=== PATIENT | male | born 1960 | race Caucasian/White ===

== ENCOUNTER 2016-10-25 11:18 | Observation (INO) ==
[2016-10-25] MEDS ORDERED: 0.9 % Sodium Chloride 500 ML IVC ONE (11:49)
--- NOTE | 2016-10-25 11:53 | Emergency Department Note ---
Disposition Clinical Impression: Hospital-acquired pneumonia Chest pain Qualifiers: Chest pain type: unspecified Qualified Code(s): R07.9 - Chest pain, unspecified Disposition: Admitted As Inpatient Condition: Fair Referrals: Bebeto Cutler MD [Primary Care Provider] - Forms: ED Satisfaction Letter Time of Disposition: 14:32 Chest Pain HPI - General Chief Complaint: ED Chest Pain Stated Complaint: Chest pain, KAREN Time Seen by Provider: 10/25/16 11:25 Source: patient, family Mode of arrival: private vehicle Limitations: no limitations Vital Signs Reviewed: Yes Nursing Notes Reviewed: Yes - History of Present Illness Pt complaint: chest pain Onset (ago): day(s) (3 days, started Tuesday) Duration: intermittent Onset: during rest Pain Location: left chest (Just to the left of the sternum. Patient defines a small localized area at about the level of the nipple) Severity: moderate (At its worst) Severity scale (1-10): 0 (Currently) Quality: sharp Pain Radiation: none Improves with: nothing Worsens with: nothing Context: recent surgery (Patient had surgery to release tightened tendons in his right hand on , the day before the onset of his symptoms.) Associated symptoms: Reports: nausea, diaphoresis, dyspnea (Patient states he is short of breath just sitting there) Treatments prior to arrival chest pain: none - Related Data Home Medications Medication Instructions Recorded Confirmed Aspirin 81 mg PO DAILY 03/31/15 10/25/16 Atorvastatin [Lipitor] 40 mg PO HS 03/31/15 10/25/16 Carvedilol [Coreg] 12.5 tab PO BID 03/31/15 10/25/16 Clopidogrel [Plavix] 75 mg PO DAILY 03/31/15 10/25/16 DiphenhydraMINE [Benadryl] 25 mg PO HS PRN 03/31/15 10/25/16 FLUoxetine HCl [PROzac] 20 mg PO DAILY #0 03/31/15 10/25/16 Fluticasone Propionate Nasal 2 spray NS DAILY 03/31/15 10/25/16 [Flonase] Gabapentin [Neurontin] 800 mg PO HS 03/31/15 10/25/16 GlipiZIDE XL (24 HR) [Glucotrol XL] 10 mg PO BID 03/31/15 10/25/16 Insulin Glargine,Hum.rec.anlog 30 units SQ HS 03/31/15 10/25/16 [Lantus Solostar] LORazepam [Ativan] 2 mg PO BID PRN 03/31/15 10/25/16 Losartan [Cozaar] 50 mg PO DAILY 03/31/15 10/25/16 Omeprazole [PriLOSEC] 20 mg PO DAILY 03/31/15 10/25/16 OxyCODONE/APAP 7.5/325 [Percocet 1 tab PO TID PRN 03/31/15 10/25/16 7.5/325] Metformin [Glucophage] 1,000 mg PO BIDWM 10/01/15 10/25/16 Nitroglycerin [Nitrostat] 0.4 mg SL AD PRN 10/01/15 10/25/16 Allergies Allergy/AdvReac Type Severity Reaction Status Date / Time No Known Allergies Allergy Verified 10/21/16 08:31 All systems ED: reviewed and negative except as stated. Constitutional: Denies: fever (Took his temperature was 99 8) ENT ED: Denies: ear pain, throat pain, congestion Cardiovascular: Reports: chest pain. Denies: palpitations Respiratory: Reports: cough (Cough did bring up some brown sputum earlier today) , dyspnea Gastrointestinal: Reports: nausea, vomiting. Denies: abdominal pain Musculoskeletal: Denies: back pain Integumentary: Denies: rash Neurological: Denies: headache Chest Pain PMH - Past Medical History Medical history: Reports: cardiomyopathy, diabetes, GERD, hyperlipidemia, hypertension, myocardial infarction Surgical history: Reports: angioplasty/stent, cholecystectomy, sinus surgery, other Psychiatric history: Reports: anxiety, depression, panic disorder - Social History Smoking Status: Current every day smoker Alcohol use: Reports: occasionally Drug use: Reports: none Physical Exam - General Limitations: no limitations General appearance: alert, in no apparent distress - Head Head exam: atraumatic, normocephalic - Eye Eye exam: Present: normal appearance, PERRL, EOMI - ENT ENT exam: normal exam, normal oropharynx, mucous membranes moist, normal external ear exam - Neck Neck exam: Present: normal inspection, full ROM, trachea midline - Chest Chest inspection: Present: normal inspection, symmetric chest wall rise. Absent : tenderness - Respiratory Respiratory exam: Present: normal lung sounds bilaterally. Absent: respiratory distress, wheezes - Cardiovascular Cardiovascular exam: Present: regular rate, normal rhythm, normal heart sounds - Abdominal Exam Abdominal exam: Present: soft, Non-Tender - Extremities Exam Extremities exam: Present: normal inspection (Except for the presence of a splint on the right hand due to his recent surgery.), full ROM. Absent: pedal edema - Neurological Exam Neurological exam: Present: alert, oriented X3 - Psychiatric Psychiatric exam: Present: normal affect, normal mood - Skin Skin exam: Present: warm, dry. Absent: rash Course Course Narrative: Patient presents with chest pain that by his description sounds like it could be muscular skeletal within intermittent sharp stabbing pain in a very small area of distribution. However it does not get worse with breathing or movement or palpation. He gets the discomfort whether he is at rest or active, and does not note that physical activity actually exacerbates the issue. The kind of surgery he had does not seem like it would be a significant risk factor for PE. However that has to be high on her differential given the description and symptoms. We will get a chest pain workup and will add the CTA of the chest to go straight for the PE issue. At this time the patient looks comfortable and his vital signs are fine. He seems to be most concerned at this moment with getting that splint taken off because he was supposed to go to the doctor's office to get the splint taken off today. - Reevaluation(s) Reevaluation #1: CT scan of the chest came back negative for pulmonary embolism. There is ground glass appearing material in the upper lobes bilaterally. This could indicate pneumonia. Patient is reportedly had some coughing. He is reported to us started bringing up brown sputum this morning. He is going cannot sweat and he does complain of shortness of breath. If this is truly pneumonia, we have to consider a hospital-acquired pneumonia because he was put to sleep for his hand surgery on . I ordered blood cultures and ordered some antibiotics. Time: 14:15 - Consultations Consultation #1: Roxy Torres CNP, hospitalist - I discussed the case with the hospitalist admit her. We talked about the need for antibiotics while admitting the patient for chest pain rule out. Patient is accepted for admission. Time: 14:30 Vital Signs Temperature 98.1 F 10/25/16 11:24 Pulse Rate 82 10/25/16 11:24 Respiratory Rate 18 10/25/16 11:24 Blood Pressure 148/72 10/25/16 11:24 O2 Sat by Pulse Oximetry 97 10/25/16 11:24 Temperature 98.6 F 10/25/16 11:44 Pulse Rate 73 10/25/16 12:44 Respiratory Rate 18 10/25/16 12:44 Blood Pressure 117/72 10/25/16 12:44 O2 Sat by Pulse Oximetry 95 10/25/16 12:44 Oxygen Delivery Oxygen Delivery Room Air Chest Pain - Medical Records Medical records reviewed: Yes I reviewed the patient's medical records. - Lab Data Lab results reviewed: Yes I reviewed the patient's lab results. Result diagrams: 10/25/16 12:15 10/25/16 12:15 Lab Results 10/25/16 10/25/16 10/25/16 Range/Units 12:15 12:15 12:15 WBC 11.7 H (4.3-11.1) K/mcL RBC 4.71 (4.19-5.50) M/mcL Hgb 14.6 (12.9-16.9) g/dL Hct 43.0 (37.5-50.1) % MCV 91.3 (83.0-100.0) fL MCH 31.0 (28.0-33.3) pg MCHC 34.0 (31.6-35.5) g/dL RDW 12.9 (11.5-14.5) % Plt Count 204 (140-400) K/mcL MPV 9.4 (9.4-12.4) fL Immature Gran % 0.4 (0-4) % Seg Neutrophils % 66.1 % Lymphocytes % 20.0 % Monocytes % 10.2 % Eosinophils % 2.6 % Basophils % 0.7 % Neutrophils # 7.8 (1.6-8.9) K/mcL Lymphocytes # 2.3 (0.6-4.6) K/mcL Monocytes # 1.2 (0.0-1.3) K/mcL Eosinophils # 0.3 (0.0-0.6) K/mcL Basophils # 0.1 (0.0-0.2) K/mcL PT 11.2 (9.4-12.1) Seconds INR 1.0 APTT 33.1 (26.0-36.0) Seconds Sodium 135 L (136-145) mEq/L Potassium 4.2 (3.5-4.5) mEq/L Chloride 103 (98-109) mEq/L Carbon Dioxide 22 (19-29) mEq/L BUN 17 (8-26) mg/dL Creatinine 0.84 (0.72-1.25) mg/dL Est GFR ( Amer) > 60 (> 60) Est GFR (Non-Af Amer) > 60 (> 60) BUN/Creatinine Ratio 20 (6-26) Glucose 184 H (70-99) mg/dL Calculated Osmolality 286 (280-300) Calcium 9.4 (8.6-10.8) mg/dL Troponin I (0-0.03) ng/mL 10/25/16 Range/Units 12:15 WBC (4.3-11.1) K/mcL RBC (4.19-5.50) M/mcL Hgb (12.9-16.9) g/dL Hct (37.5-50.1) % MCV (83.0-100.0) fL MCH (28.0-33.3) pg MCHC (31.6-35.5) g/dL RDW (11.5-14.5) % Plt Count (140-400) K/mcL MPV (9.4-12.4) fL Immature Gran % (0-4) % Seg Neutrophils % % Lymphocytes % % Monocytes % % Eosinophils % % Basophils % % Neutrophils # (1.6-8.9) K/mcL Lymphocytes # (0.6-4.6) K/mcL Monocytes # (0.0-1.3) K/mcL Eosinophils # (0.0-0.6) K/mcL Basophils # (0.0-0.2) K/mcL PT (9.4-12.1) Seconds INR APTT (26.0-36.0) Seconds Sodium (136-145) mEq/L Potassium (3.5-4.5) mEq/L Chloride (98-109) mEq/L Carbon Dioxide (19-29) mEq/L BUN (8-26) mg/dL Creatinine (0.72-1.25) mg/dL Est GFR ( Amer) (> 60) Est GFR (Non-Af Amer) (> 60) BUN/Creatinine Ratio (6-26) Glucose (70-99) mg/dL Calculated Osmolality (280-300) Calcium (8.6-10.8) mg/dL Troponin I 0.00 (0-0.03) ng/mL - Radiology Data Radiology results reviewed: Yes I reviewed the patient's radiology results. - EKG Data EKG attestation: Yes I reviewed and interpreted this EKG. EKG shows normal: sinus rhythm, axis, intervals, QRS complexes, ST-T waves Rate: normal Q waves: III Interpretation: no acute changes (Sinus rhythm with evidence of probable old inferior infarct consistent with patient's history.), unchanged when compared to prior tracing (date) (September 2015)
[2016-10-25 12:33] LABS: Basophils # 0.1 K/mcL (0.0-0.2); Basophils % 0.7 %; Eosinophils # 0.3 K/mcL (0.0-0.6); Eosinophils % 2.6 %; Hemoglobin 14.6 g/dL (12.9-16.9); Immature Granulocytes % 0.4 % (0-4); Lymphocytes # 2.3 K/mcL (0.6-4.6); Mean Corpuscular Volume 91.3 fL (83.0-100.0); Mean Platelet Volume 9.4 fL (9.4-12.4); Monocytes # 1.2 K/mcL (0.0-1.3); Monocytes % 10.2 %; Neutrophils # 7.8 K/mcL (1.6-8.9); Platelet Count 204 K/mcL (140-400); Red Blood Count 4.71 M/mcL (4.19-5.50); Red Cell Distribution Width 12.9 % (11.5-14.5); Segmented Neutrophils % 66.1 %
[2016-10-25 12:44] LABS: Prothrombin Time 11.2 Seconds (9.4-12.1)
[2016-10-25 12:46] LABS: BUN/Creatinine Ratio 20 (6-26); Blood Urea Nitrogen 17 mg/dL (8-26); Calcium 9.4 mg/dL (8.6-10.8); Carbon Dioxide 22 mEq/L (19-29); Chloride 103 mEq/L (98-109); Glucose 184 mg/dL (70-99); Osmolality,Calculated 286 (280-300); Potassium 4.2 mEq/L (3.5-4.5); Sodium 135 mEq/L (136-145); eGFR For African Americans > 60 (> 60); eGFR For Non-African Americans > 60 (> 60)
[2016-10-25 12:47] LABS: Activated Partial Thrombo Time 33.1 Seconds (26.0-36.0)
[2016-10-25] MEDS ORDERED: Vancomycin 1,750 MG in D5% in Water 500 ML IVPB ONE (14:02)
[2016-10-25] MEDS ORDERED: Levofloxacin 750 MG/150 ML 750 MG/150 ML BAG IVPB ONE (14:02)
[2016-10-25] MEDS ORDERED: Piperacillin/Tazobactam 3.375 GM in D5% in Water (Mini-Bag+) 100 ML IVPB ONE (14:27)
[2016-10-25] MEDS ORDERED: Vancomycin (wt based) 1,000 MG VIAL IV SCH (15:00)
[2016-10-25] MEDS ORDERED: Naloxone 0.4 MG/ML INJ IVP PRN (17:02)
[2016-10-25] MEDS ORDERED: *HR* Dextrose 50 % in Water (Syg) 50 ML SYRINGE IVP PRN (17:11)
[2016-10-25] MEDS ORDERED: Dextrose Gel 15 GM PO PRN ×2 (17:11)
[2016-10-25] MEDS ORDERED: D5% in Water 1,000 ML IVC PRN (17:11)
[2016-10-25] MEDS ORDERED: *HR* LORazepam 1 MG TABLET PO PRN (17:18)
[2016-10-25] MEDS ORDERED: Nitroglycerin 0.4 MG TAB.SUBL SL PRN (17:18)
--- NOTE | 2016-10-25 17:35 | Internal Med History&Physical ---
Date of Encounter: 10/25/16 Time of Encounter: 16:00 Internal Medicine - H&P: HPI Chief complaint: CP, SOB Admitted From: Home Plans for Post Hospital Care: Home History of present illness: Mr. Gibson is a 56 year-old male with history of diabetes, hypertension, hyperlipidemia, CAD/WI s/p stents x 2 (2011) who presents to the ED on 2016 with chief complaints of chest pain and shortness of breath. Patient had a wrist surgery on 10/21. Patient reports that shortness of breath and chest pain are intermittent and have no exacerbating or relieving factors. He states that pain is located at the upper left chest near the nipple area. Patient reports that he has a cough which became worse after his surgery and he expressed brown sputum several times post-surgery, including today. He reports that he was nauseous and diaphoretic today, but this has since resolved. He reports that his symptoms began the day after his surgery (10/22/2016) and began to get worse, causing him to seek treatment at the ED. Patient states "I just don't feel healthy." Patient also reports urinary hesitancy post-surgery and states he has been unable to urinate very much and what little he does is very dark. Patient states that he fell the day of his surgery at the surgical office , but was uninjured. He was checked by medical personnel at the time. Patient denies any generalized fatigue or muscle weakness, dizziness or syncopal episodes. Evaluation in the ED included an EKG that showed no changes from previous, troponin was negative at 0.0. CXR showed no acute cardiopulmonary disease. CTA was ordered to rule out PE and was negative for PE but did show bilateral upper lobe ground glass opacities. Upon examination, patient's lungs are clear bilaterally and heart rate is normal and regular in rhythm. Peripheral pulses present and easily palpable. Patient presents with a normal affect, is conversational and pleasant, answers all questions appropriately and is cooperative, and is alert and oriented x3. Past Med Surg Social Fam HX - Past Medical History Medical history: cardiomyopathy, diabetes, GERD, hyperlipidemia, hypertension, myocardial infarction Psychiatric history: anxiety, depression, panic disorder - Past Surgical History Surgical History: angioplasty/stent, cholecystectomy, sinus surgery, other - Social History Smoking Status: Current every day smoker Smokeless Tobacco Status: No Alcohol use: occasionally Drug use: none - Family History Mother Living Status: Hx Family Cardiac Disorders: Yes Father Living Status: Hx Family Cardiac Disorders: Yes Hx Family Endocrine Disorder: Yes Internal Medicine - H&P: Meds Aspirin 81 mg PO DAILY 03/31/15 [History] Atorvastatin [Lipitor] 40 mg PO HS 03/31/15 [History] Carvedilol [Coreg] 12.5 tab PO BID 03/31/15 [History] Clopidogrel [Plavix] 75 mg PO DAILY 03/31/15 [History] DiphenhydraMINE [Benadryl] 25 mg PO HS PRN 03/31/15 [History] FLUoxetine HCl [PROzac] 20 mg PO DAILY #0 03/31/15 [History] Fluticasone Propionate Nasal [Flonase] 2 spray NS DAILY 03/31/15 [History] Gabapentin [Neurontin] 800 mg PO HS 03/31/15 [History] GlipiZIDE XL (24 HR) [Glucotrol XL] 10 mg PO BID 03/31/15 [History] Insulin Glargine,Hum.rec.anlog [Lantus Solostar] 30 units SQ HS 03/31/15 [ History] LORazepam [Ativan] 2 mg PO BID PRN 03/31/15 [History] Losartan [Cozaar] 50 mg PO DAILY 03/31/15 [History] Omeprazole [PriLOSEC] 20 mg PO DAILY 03/31/15 [History] OxyCODONE/APAP 7.5/325 [Percocet 7.5/325] 1 tab PO TID PRN 03/31/15 [History] Metformin [Glucophage] 1,000 mg PO BIDWM 10/01/15 [History] Nitroglycerin [Nitrostat] 0.4 mg SL AD PRN 10/01/15 [History] Allergies No Known Allergies Allergy (Verified 10/21/16 08:31) All Systems PM: A 10-system review of systems was performed and is negative for pertinent findings except as documented above in the HPI. - Constitutional Vitals: Temp Pulse Resp BP Pulse Ox 98.6 F 69 18 134/76 95 10/25/16 11:44 10/25/16 14:41 10/25/16 14:41 10/25/16 14:41 10/25/16 14:41 Internal Med - H&P Results - Labs CBC & Chem 7: 10/25/16 12:15 10/25/16 12:15
[2016-10-25] MEDS: Nicotine 21 MG PATCH.TD24 TD SCH (17:57)
[2016-10-25] MEDS ORDERED: Vancomycin 1,750 MG in D5% in Water 250 ML IVPB SCH (18:00)
[2016-10-25] MEDS: *HR* OxyCODONE/APAP 7.5/325 TABLET PO PRN ×2 (18:45→23:39)
[2016-10-25] MEDS: Insulin LISPRO 300 UNITS/3 ML VIAL SQ SCH (20:50)
[2016-10-25] MEDS ORDERED: Insulin LISPRO 300 UNITS/3 ML VIAL SQ SCH (21:00)
[2016-10-25] MEDS ORDERED: Gabapentin 400 MG CAPSULE PO SCH (21:00)
[2016-10-25] MEDS ORDERED: Insulin DETEMIR 100 UNIT/ML X5UNITS SQ SCH (21:00)
[2016-10-25 22:55] LABS: C-Reactive Protein 89 mg/L (Less than 5)
[2016-10-25] MEDS: Ipratropium/Albuterol Neb 3 ML IH SCH (22:58)
[2016-10-26] MEDS ORDERED: Piperacillin/Tazobactam 3.375 GM in D5% in Water (Mini-Bag+) 100 ML IVPB SCH
[2016-10-26 00:49] LABS: Basophils # 0.1 K/mcL (0.0-0.2); Basophils % 0.8 %; Eosinophils # 0.3 K/mcL (0.0-0.6); Eosinophils % 2.8 %; Hematocrit 38.7 % (37.5-50.1); Hemoglobin 13.3 g/dL (12.9-16.9); Immature Granulocytes % 0.3 % (0-4); Lymphocytes # 2.7 K/mcL (0.6-4.6); Lymphocytes % 26.2 %; Mean Corpuscular HGB Conc 34.4 g/dL (31.6-35.5); Mean Corpuscular Hemoglobin 31.5 pg (28.0-33.3); Mean Corpuscular Volume 91.7 fL (83.0-100.0); Monocytes # 1.2 K/mcL (0.0-1.3); Monocytes % 11.2 %; Neutrophils # 6.2 K/mcL (1.6-8.9); Platelet Count 180 K/mcL (140-400); Red Blood Count 4.22 M/mcL (4.19-5.50); Segmented Neutrophils % 58.7 %
[2016-10-26 01:06] LABS: BUN/Creatinine Ratio 13 (6-26); Blood Urea Nitrogen 14 mg/dL (8-26); Calcium 8.7 mg/dL (8.6-10.8); Carbon Dioxide 22 mEq/L (19-29); Chloride 105 mEq/L (98-109); Glucose 226 mg/dL (70-99); Osmolality,Calculated 288 (280-300); Potassium 4.1 mEq/L (3.5-4.5); Sodium 135 mEq/L (136-145); eGFR For African Americans > 60 (> 60); eGFR For Non-African Americans > 60 (> 60)
--- NOTE | 2016-10-26 01:10 | Internal Med History&Physical ---
Date of Encounter: 10/25/16 Time of Encounter: 18:00 Assessment and Plan (1) Atypical pneumonia Current visit: Yes Status: Acute Patient reporting shortness of breath, cough, poor appetite and chills since surgery on . CTA showed ground glass opacities in BUL and small bilateral pleural effusions. CRP was elevated. Levaquin IVPB 0.9NS at 60mL/hr consult pulmonology for atypical pneumonia. (2) Chest pain Current visit: Yes Status: Acute Patient had an episode of chest pain today, he describes as sharp and radiating to his back. He has had shortness of breath since last Tuesday, likely related to pneumonia. Patient with history of CAD. Initial troponin negative at 0.0. EKG showed no changes. He had an echocardiogram 09/20 which showed EF 50%, mild LVH and mild LV diastolic dysfunction. 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 stress test in the morning. Qualifiers: Chest pain type: precordial pain Qualified Code(s): R07.2 - Precordial pain (3) Type 2 diabetes mellitus Current visit: Yes Status: Acute Not well controlled as evidenced by A1c of 8.0% check blood sugar ACHS Hold home dose of glipizide and metformin Continue basal dose of insulin 30u Levemir HS Sliding scale correction dose ACHS hypoglycemic protocol. 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 Qualifiers: Hypertension type: essential hypertension Qualified Code(s): I10 - Essential (primary) hypertension (5) Smoker Current visit: Yes Status: Acute Patient smokes 1.5-2PPD. Discussed smoking cessation. Patient not ready to quit. Nicotine patch daily. (6) DVT prophylaxis Current visit: Yes Status: Acute Encourage ambulation anti-embolic stockings Lovenox 40mg SQ daily Internal Medicine - H&P: HPI Chief complaint: shortness of breath and chest pain Admitted From: Emergency Dept Plans for Post Hospital Care: Home History of present illness: Mr. Gibson is a 56 year old male with hypertension, hyperlipidemia, type 2 diabetes, coronary artery disease status post stent placement who presented to the emergency department today with complaints of shortness of breath and chest pain. Patient had wrist surgery on and reports since that time he felt short of breath, has had a poor appetite, and has had chills on and off. Today he had an episode of chest pain was midsternal sharp and radiated to his back which is what prompted the patient to come to the emergency department. His cough is mildly productive. He reports he felt constipated since surgery as well. Evaluation in emergency department included chest x-ray which showed no acute cardiopulmonary disease. White blood cell count was mildly elevated at 11.7. Troponin was negative at 0.0. EKG showed no changes from previous and September. CTA was ordered to rule out PE given patient's recent surgery and symptoms of chest pain and shortness of breath, it showed bilateral groundglass opacities in the bilateral upper lobes and small bilateral pleural effusions, was negative for PE. On exam, patient is alert and oriented, in no acute distress. Heart is regular rate and rhythm, lungs clear to auscultation bilaterally. Past Med Surg Social Fam HX - Past Medical History Medical history: cardiomyopathy, diabetes, GERD, hyperlipidemia, hypertension, myocardial infarction Psychiatric history: anxiety, depression, panic disorder - Past Surgical History Surgical History: angioplasty/stent, cholecystectomy, sinus surgery, other - Social History Smoking Status: Current every day smoker Smokeless Tobacco Status: No Alcohol use: occasionally Drug use: none - Family History Mother Living Status: Hx Family Cardiac Disorders: Yes Father Living Status: Hx Family Cardiac Disorders: Yes (stroke, [place]) Hx Family Endocrine Disorder: Yes (DM) Internal Medicine - H&P: Meds Aspirin 81 mg PO DAILY 03/31/15 [History] Atorvastatin [Lipitor] 40 mg PO HS 03/31/15 [History] Carvedilol [Coreg] 12.5 tab PO BID 03/31/15 [History] Clopidogrel [Plavix] 75 mg PO DAILY 03/31/15 [History] DiphenhydraMINE [Benadryl] 25 mg PO HS PRN 03/31/15 [History] FLUoxetine HCl [PROzac] 20 mg PO DAILY #0 03/31/15 [History] Fluticasone Propionate Nasal [Flonase] 2 spray NS DAILY 03/31/15 [History] Gabapentin [Neurontin] 800 mg PO HS 03/31/15 [History] GlipiZIDE XL (24 HR) [Glucotrol XL] 10 mg PO BID 03/31/15 [History] Insulin Glargine,Hum.rec.anlog [Lantus Solostar] 30 units SQ HS 03/31/15 [ History] LORazepam [Ativan] 2 mg PO BID PRN 03/31/15 [History] Losartan [Cozaar] 50 mg PO DAILY 03/31/15 [History] Omeprazole [PriLOSEC] 20 mg PO DAILY 03/31/15 [History] OxyCODONE/APAP 7.5/325 [Percocet 7.5/325] 1 tab PO TID PRN 03/31/15 [History] Metformin [Glucophage] 1,000 mg PO BIDWM 10/01/15 [History] Nitroglycerin [Nitrostat] 0.4 mg SL AD PRN 10/01/15 [History] Allergies No Known Allergies Allergy (Verified 10/21/16 08:31) All Systems PM: A 10-system review of systems was performed and is negative for pertinent findings except as documented above in the HPI. - Constitutional Constitutional: anorexia, chills, no fever(s), no night sweats - EENT Eyes: no change in vision, no discharge, no pain, no photophobia Ears: no ear discharge, no ear pain, no tinnitus Nose, mouth and throat: no dysphagia, no nasal discharge, no neck pain, no sore throat - Cardiovascular Cardiovascular ROS IM: chest pain, dyspnea, no diaphoresis, no lightheadedness, no palpitations, no syncope - Respiratory Respiratory: cough, dyspnea, no wheezing, no excessive phlegm production - Gastrointestinal Gastrointestinal: constipation, no abdominal pain, no diarrhea, no hematemesis, no hematochezia, no melena, no nausea, no vomiting - Musculoskeletal Musculoskeletal ROS IM: no numbness, no tingling - Integumentary Integumentary IM: no rash, no unusual bruising - Neurological Neurological ROS: no confusion, no convulsions, no focal weakness, no numbness, no tingling, no tremor(s) - Hematologic/Lymphatic Hematologic/Lymphatic: no easy bruising - Constitutional Vitals: Temp Pulse Resp BP Pulse Ox 98.2 F 79 16 133/79 95 10/25/16 23:30 10/25/16 23:30 10/25/16 23:30 10/25/16 23:30 10/25/16 23:30 General appearance: Present: A&O X 3, pleasant, no acute distress - Head Head exam: Present: atraumatic, normocephalic - Eye Eye exam: Present: PERRL, conjuntiva pink, sclera anicteric Pupils: Present: PERRL - Neck Neck exam general surgery: Present: supple, trachea midline. Absent: lymphadenopathy - Respiratory Respiratory exam: Present: CTAB. Absent: accessory muscle use, rales, rhonchi, wheezes - Cardiovascular Cardiovascular exam: Present: RRR, +S1, +S2. Absent: diastolic murmur, gallop, rubs, systolic murmur - GI/Abdominal GI/Abdominal exam: Present: normal bowel sounds, soft, no peritoneal signs. Absent: distended, tenderness - Extremities Exam Extremities exam: Present: warm, radial pulses palpable and symetrical. Absent : calf tenderness, cyanotic, pedal edema - Neurological Exam Neurological exam: Present: CN II-XII intact, oriented X3, no focal deficits. Absent: facial droop, speech deficit - Skin Skin exam: Present: dry, intact Internal Med - H&P Results - Labs CBC & Chem 7: 10/26/16 00:40 10/26/16 00:40 Labs: Short CBC All Lab Results (24 Hours) 10/25/16 10/25/16 10/25/16 Range/Units 12:15 12:15 12:15 WBC 11.7 H (4.3-11.1) K/mcL RBC 4.71 (4.19-5.50) M/mcL Hgb 14.6 (12.9-16.9) g/dL Hct 43.0 (37.5-50.1) % MCV 91.3 (83.0-100.0) fL MCH 31.0 (28.0-33.3) pg MCHC 34.0 (31.6-35.5) g/dL RDW 12.9 (11.5-14.5) % Plt Count 204 (140-400) K/mcL MPV 9.4 (9.4-12.4) fL Immature Gran % 0.4 (0-4) % Seg Neutrophils % 66.1 % Lymphocytes % 20.0 % Monocytes % 10.2 % Eosinophils % 2.6 % Basophils % 0.7 % Neutrophils # 7.8 (1.6-8.9) K/mcL Lymphocytes # 2.3 (0.6-4.6) K/mcL Monocytes # 1.2 (0.0-1.3) K/mcL Eosinophils # 0.3 (0.0-0.6) K/mcL Basophils # 0.1 (0.0-0.2) K/mcL PT 11.2 (9.4-12.1) Seconds INR 1.0 APTT 33.1 (26.0-36.0) Seconds Sodium 135 L (136-145) mEq/L Potassium 4.2 (3.5-4.5) mEq/L Chloride 103 (98-109) mEq/L Carbon Dioxide 22 (19-29) mEq/L BUN 17 (8-26) mg/dL Creatinine 0.84 (0.72-1.25) mg/dL Est GFR ( Amer) > 60 (> 60) Est GFR (Non-Af Amer) > 60 (> 60) BUN/Creatinine Ratio 20 (6-26) Glucose 184 H (70-99) mg/dL POC Glucose (58-89) Calculated Osmolality 286 (280-300) Calcium 9.4 (8.6-10.8) mg/dL Troponin I (0-0.03) ng/mL C-Reactive Protein 89 H (Less than 5) mg/L B-Natriuretic Peptide (0-100) pg/mL 10/25/16 10/25/16 10/25/16 Range/Units 12:15 19:15 20:38 WBC (4.3-11.1) K/mcL RBC (4.19-5.50) M/mcL Hgb (12.9-16.9) g/dL Hct (37.5-50.1) % MCV (83.0-100.0) fL MCH (28.0-33.3) pg MCHC (31.6-35.5) g/dL RDW (11.5-14.5) % Plt Count (140-400) K/mcL MPV (9.4-12.4) fL Immature Gran % (0-4) % Seg Neutrophils % % Lymphocytes % % Monocytes % % Eosinophils % % Basophils % % Neutrophils # (1.6-8.9) K/mcL Lymphocytes # (0.6-4.6) K/mcL Monocytes # (0.0-1.3) K/mcL Eosinophils # (0.0-0.6) K/mcL Basophils # (0.0-0.2) K/mcL PT (9.4-12.1) Seconds INR APTT (26.0-36.0) Seconds Sodium (136-145) mEq/L Potassium (3.5-4.5) mEq/L Chloride (98-109) mEq/L Carbon Dioxide (19-29) mEq/L BUN (8-26) mg/dL Creatinine (0.72-1.25) mg/dL Est GFR ( Amer) (> 60) Est GFR (Non-Af Amer) (> 60) BUN/Creatinine Ratio (6-26) Glucose (70-99) mg/dL POC Glucose 125 H (58-89) Calculated Osmolality (280-300) Calcium (8.6-10.8) mg/dL Troponin I 0.00 0.01 (0-0.03) ng/mL C-Reactive Protein (Less than 5) mg/L B-Natriuretic Peptide (0-100) pg/mL 10/25/16 10/26/16 10/26/16 Range/Units 20:39 00:40 00:40 WBC 10.5 (4.3-11.1) K/mcL RBC 4.22 (4.19-5.50) M/mcL Hgb 13.3 (12.9-16.9) g/dL Hct 38.7 (37.5-50.1) % MCV 91.7 (83.0-100.0) fL MCH 31.5 (28.0-33.3) pg MCHC 34.4 (31.6-35.5) g/dL RDW 13.0 (11.5-14.5) % Plt Count 180 (140-400) K/mcL MPV 9.0 L (9.4-12.4) fL Immature Gran % 0.3 (0-4) % Seg Neutrophils % 58.7 % Lymphocytes % 26.2 % Monocytes % 11.2 % Eosinophils % 2.8 % Basophils % 0.8 % Neutrophils # 6.2 (1.6-8.9) K/mcL Lymphocytes # 2.7 (0.6-4.6) K/mcL Monocytes # 1.2 (0.0-1.3) K/mcL Eosinophils # 0.3 (0.0-0.6) K/mcL Basophils # 0.1 (0.0-0.2) K/mcL PT (9.4-12.1) Seconds INR APTT (26.0-36.0) Seconds Sodium (136-145) mEq/L Potassium (3.5-4.5) mEq/L Chloride (98-109) mEq/L Carbon Dioxide (19-29) mEq/L BUN (8-26) mg/dL Creatinine (0.72-1.25) mg/dL Est GFR ( Amer) (> 60) Est GFR (Non-Af Amer) (> 60) BUN/Creatinine Ratio (6-26) Glucose (70-99) mg/dL POC Glucose (58-89) Calculated Osmolality (280-300) Calcium (8.6-10.8) mg/dL Troponin I 0.01 (0-0.03) ng/mL C-Reactive Protein (Less than 5) mg/L B-Natriuretic Peptide 43 (0-100) pg/mL 10/26/16 Range/Units 00:40 WBC (4.3-11.1) K/mcL RBC (4.19-5.50) M/mcL Hgb (12.9-16.9) g/dL Hct (37.5-50.1) % MCV (83.0-100.0) fL MCH (28.0-33.3) pg MCHC (31.6-35.5) g/dL RDW (11.5-14.5) % Plt Count (140-400) K/mcL MPV (9.4-12.4) fL Immature Gran % (0-4) % Seg Neutrophils % % Lymphocytes % % Monocytes % % Eosinophils % % Basophils % % Neutrophils # (1.6-8.9) K/mcL Lymphocytes # (0.6-4.6) K/mcL Monocytes # (0.0-1.3) K/mcL Eosinophils # (0.0-0.6) K/mcL Basophils # (0.0-0.2) K/mcL PT (9.4-12.1) Seconds INR APTT (26.0-36.0) Seconds Sodium 135 L (136-145) mEq/L Potassium 4.1 (3.5-4.5) mEq/L Chloride 105 (98-109) mEq/L Carbon Dioxide 22 (19-29) mEq/L BUN 14 (8-26) mg/dL Creatinine 1.10 (0.72-1.25) mg/dL Est GFR ( Amer) > 60 (> 60) Est GFR (Non-Af Amer) > 60 (> 60) BUN/Creatinine Ratio 13 (6-26) Glucose 226 H (70-99) mg/dL POC Glucose (58-89) Calculated Osmolality 288 (280-300) Calcium 8.7 (8.6-10.8) mg/dL Troponin I (0-0.03) ng/mL C-Reactive Protein (Less than 5) mg/L B-Natriuretic Peptide (0-100) pg/mL 10/26/16 Range/Units 00:40 WBC 10.5 (4.3-11.1) K/mcL Hgb 13.3 (12.9-16.9) g/dL Hct 38.7 (37.5-50.1) % Plt Count 180 (140-400) K/mcL Neutrophils # 6.2 (1.6-8.9) K/mcL Cardiac Enzymes 10/25/16 Range/Units 19:15 Troponin I 0.01 (0-0.03) ng/mL - Diagnostic Studies Chest x-ray Additional comments: Chest X-Ray 10/25/16 11:49 IMPRESSION: No acute cardiopulmonary disease. D/ / 10/25/2016 12:54:24 Jackson Mortensen MD / bcarter Interpreting Provider: Jackson Mortensen MD CT scan - chest Additional comments: Chest CTA 10/25/16 11:49 IMPRESSION: 1. No evidence of pulmonary embolus. 2. Patchy bilateral ground-glass opacities most notable in the upper lobes. Differential is broad and includes pneumonitis, atypical infection, and resolving edema. 3. Small bilateral pleural effusions. 4. Coronary artery disease. D/ / 10/25/2016 13:35:21 Manny Mccray MD / kaushal Interpreting Provider: Manny Mccray MD
[2016-10-26] MEDS ORDERED: 0.9 % Sodium Chloride 1,000 ML IVC SCH (01:30)
[2016-10-26] MEDS ORDERED: Vancomycin 1,750 MG in D5% in Water 500 ML IVPB SCH (03:30)
[2016-10-26] MEDS: Ipratropium/Albuterol Neb 3 ML IH SCH ×3 (05:00→15:43)
--- NOTE | 2016-10-26 06:38 | Pulmonology Consult Note ---
Date of Encounter: 10/26/16 Time of Encounter: 06:38 Assessment and Plan (1) Atypical pneumonia Current Visit: Yes Status: Acute Acute multifocal opacities consistent with likely viral pneumonia. Recommend sending respiratory viral panel and treating with respiratory fluoroquinolone (levaquin is reasonble) for [address] scan in 6 weeks to demonstrate resolution (2) Smoker Current Visit: Yes Status: Acute Tobacco abstinence encouraged outpaient pulmonary evaluation for COPD Discharge with ALLYSSA (albuterol) inhaler History of Present Illness Consult date: 10/26/16 Requesting physician: Veronica Pink Reason for consult: pneumonia Chief complaint: Shortness of Breath History of present illness: This is a 56-year-old gentleman who presented with chief complaint of shortness of breath, dry cough, and chest pain that started on tuesday after undergoing a hand surgery for contractures. He denies fever or hemoptysis. In the ED a CTA was performed which was negative for acute filling defect however it was notable for b/l patchy opaticites. ECG without acute changes troponin was within normal limits. He was treated empirically for atypical pneumonia and subsequently clinical course is improved to some degree since he has been inpatient. Pulmonary was consulted to evaluate cause of bilateral patchy airspace disease. Patient has a history of underlying coronary artery disease and is occurring every day smoker without a known diagnosis of COPD to his knowledge he says he drinks once a week but does not use recreational drugs no sick contacts or recent travel has 3 lap dogs at home but no exotic animals. Currently he is resting quite comfortably on room air anxious to return home Past Med Surg Social Fam HX - Past Medical History Medical history: cardiomyopathy, diabetes, GERD, hyperlipidemia, hypertension, myocardial infarction Psychiatric history: anxiety, depression, panic disorder - Past Surgical History Surgical History: angioplasty/stent, cholecystectomy, sinus surgery, other - Social History Smoking Status: Current every day smoker Smokeless Tobacco Status: No Alcohol use: occasionally Drug use: none - Family History Mother Living Status: Hx Family Cardiac Disorders: Yes Father Living Status: Hx Family Cardiac Disorders: Yes (stroke, [place]) Hx Family Endocrine Disorder: Yes (DM) Medications and Allergies Aspirin 81 mg PO DAILY 03/31/15 [History] Atorvastatin [Lipitor] 40 mg PO HS 03/31/15 [History] Carvedilol [Coreg] 12.5 tab PO BID 03/31/15 [History] Clopidogrel [Plavix] 75 mg PO DAILY 03/31/15 [History] DiphenhydraMINE [Benadryl] 25 mg PO HS PRN 03/31/15 [History] FLUoxetine HCl [PROzac] 20 mg PO DAILY #0 03/31/15 [History] Fluticasone Propionate Nasal [Flonase] 2 spray NS DAILY 03/31/15 [History] Gabapentin [Neurontin] 800 mg PO HS 03/31/15 [History] GlipiZIDE XL (24 HR) [Glucotrol XL] 10 mg PO BID 03/31/15 [History] Insulin Glargine,Hum.rec.anlog [Lantus Solostar] 30 units SQ HS 03/31/15 [ History] LORazepam [Ativan] 2 mg PO BID PRN 03/31/15 [History] Losartan [Cozaar] 50 mg PO DAILY 03/31/15 [History] Omeprazole [PriLOSEC] 20 mg PO DAILY 03/31/15 [History] OxyCODONE/APAP 7.5/325 [Percocet 7.5/325] 1 tab PO TID PRN 03/31/15 [History] Metformin [Glucophage] 1,000 mg PO BIDWM 10/01/15 [History] Nitroglycerin [Nitrostat] 0.4 mg SL AD PRN 10/01/15 [History] Allergies No Known Allergies Allergy (Verified 10/21/16 08:31) All Systems: A 10-system review of systems was performed and is negative for pertinent findings except as documented above in the HPI. Physical Examination Vital Signs: Vital Signs, Last 4 Hours Temp Pulse Resp BP Pulse Ox 10/26/16 05:00 16 92 L 10/26/16 03:23 98.2 F 73 15 148/88 96 General appearance: no acute distress Eyes: nonicteric ENT: oropharynx moist Neck: supple Effort: normal Auscultation: bilateral: clear Cardiovascular: regular rate and rhythm Gastrointestinal: normoactive bowel sounds Integumentary: normal Extremities: no clubbing normal mental status, non-focal exam mood appropriate Results - Laboratory Findings CBC and BMP: 10/26/16 00:40 10/26/16 00:40 PT/INR, D-dimer PT 11.2 Seconds (9.4-12.1) 10/25/16 12:15 Abnormal lab findings: Abnormal lab results MPV 9.0 fL (9.4-12.4) L 10/26/16 00:40 Sodium 135 mEq/L (136-145) L 10/26/16 00:40 Glucose 226 mg/dL (70-99) H 10/26/16 00:40 POC Glucose 125 (58-89) H 10/25/16 20:38 C-Reactive Protein 89 mg/L (Less than 5) H 10/25/16 12:15 - Microbiology Findings Microbiology Findings: Microbiology, Last 48 Hours 10/26/16 Unknown Influenza Types A,B Antigen (CATHIE) - Final Nasopharyngeal - Diagnostic Findings Chest x-ray: report reviewed, image reviewed CT scan - chest: report reviewed, image reviewed - Clinical Findings Intake & Output: Intake & Output 10/25/16 10/25/16 10/26/16 15:59 23:59 07:59 Intake Total 0 / 0 Output Total 200 / 200 Balance -200 / -200 Weight 117.526 kg 117.8 kg Consult Discharge Plan - Plan Referrals: Bebeto Cutler MD [Primary Care Provider] -
[2016-10-26] MEDS ORDERED: *HR* Enoxaparin 40 MG/0.4 ML SYRINGE SQ SCH (07:00)
[2016-10-26] MEDS: Insulin LISPRO 300 UNITS/3 ML VIAL SQ SCH ×3 (07:34→16:50)
[2016-10-26] MEDS: *HR* OxyCODONE/APAP 7.5/325 TABLET PO PRN ×2 (08:02→16:35)
[2016-10-26] MEDS ORDERED: FLUoxetine 20 MG CAPSULE PO SCH (09:00)
[2016-10-26] MEDS ORDERED: Aspirin 81 MG TAB.CHEW PO SCH (09:00)
[2016-10-26] MEDS ORDERED: Fluticasone Propionate Nasal 50 MCG/SPRAY BOTTLE NS SCH (09:00)
[2016-10-26] MEDS ORDERED: Regadenoson 0.4 MG/5 ML SYRINGE IVP ONE (10:18)
[2016-10-26] MEDS: Nicotine 21 MG PATCH.TD24 TD SCH (12:51)
--- NOTE | 2016-10-26 13:14 | Nuclear Medicine Stress Report ---
Regadenoson Nuclear Stress Name: Jayden Gibson Date of Study: 10/26/2016 Date: 1960 Ht: 74.0 in Medical Record#: [id number] Age: 56 Wt: 261.0 lb Gender: Male Order #: [id number] Location: [facility] Room: [facility] Supervising Provider: Amie Hirsch CNP Reading Physician: Jamey Negrete MD, [facility] Ordering Physician: Lyn Sawyer CNP Primary Care Physician: Bebeto Cutler MD Stress Technologist: Keri Montemayor [employer]OOKKEEPING SERVICE SALES AGENT, CCT Custodial Foreman: Surinder Bravo Indications: Chest Pain Impression: No significant ECG changes with regadenoson. Gated LVEF = 42%. The left ventricle is dilated. LVEDV = 244 mL. There is a medium-large, moderate-severe intensity, predominantly fixed perfusion defect involving the basal-apical inferior wall, basal-mid inferolateral wall, and apex. Findings are consistent with a medium-large myocardial infarction involving these segments. There is mild kelsey-infarct ischemia in the basal-mid inferolateral wall. Consider cardiology consultation. Abnormal results communicated to ordering provider via [employer] message. History: Hypertension Diabetes Hypercholesteremia History of Smoking Prior PCI Stress Test Summary: Stress Test Type: Pharmacologic Regadenoson 0.4mg/5ml given IV Baseline Information: Initial Heart Rate: 76 Blood Pressure: 134/78 Stress Information: Test Terminated Due to (primary): As per protocol Maximum Blood Pressure: 126/72 Maximum Heart Rate: 95 Percent Maximum Heart Rate Achieved: 59 Double Product: [id number] Symptoms: No chest symptoms Nuclear Summary: SPECT myocardial perfusion imaging using Tc99m Sestamibi given intravenously was performed at rest and following cardiac stress testing. The resting images were obtained following initial dose of 9.7 mCi. Following stress an additional dose of 31.8 mCi was given at peak exercise or 30 seconds post regadenoson infusion. Findings: Stress Note * Resting ECG demonstrated sinus rhythm, non-specific ST-T wave abnormality. * No baseline arrhythmias were noted. * Patient had no chest pain during stress. * No arrhythmias were noted during stress. * No significant ECG changes with regadenoson. Hemodynamic responses * Normal hemodynamic responses to pharmacologic stress. Study Quality * Study quality is good. Gated EF % * Gated LVEF = 42%. Left Ventricle * The left ventricle is dilated. LVEDV = 244 mL. * There is a medium-large, moderate-severe intensity, predominantly fixed perfusion defect involving the basal-apical inferior wall, basal-mid inferolateral wall, and apex. * Findings are consistent with a medium-large myocardial infarction involving these segments. * There is mild kelsey-infarct ischemia in the basal-mid inferolateral wall. TID * There is evidence of mild transient ischemic dilatation (TID). Updated by Jamey Negrete MD, FACC on 10/26/2016 1:08:52 PM electronically signed on 10/26/2016 1:09:36 PM with status of Final
[2016-10-26 14:47] VITALS: BP 157/83
[2016-10-26] MEDS ORDERED: Levofloxacin 750 MG/150 ML 750 MG/150 ML BAG IVPB SCH (16:00)
--- NOTE | 2016-10-26 16:08 | Cardiology Consult Note ---
<Randal Vu - Last Filed: 10/26/16 17:07> Date of Encounter: 10/26/16 Time of Encounter: 17:07 Assessment and Plan (1) Abnormal stress test Current Visit: Yes Status: Acute Stress test showed previous medium- large infarct involving basal apical inferior wall, basal-mid inferolateral wall and apex. EF 42%, There was mild kelsey-infarct ischemia involving the basal to mid inferolateral wall. There was evidence of mild TID. Recent TTE completed prior to surgery- EF 50%, segmental LV dysfunction. History of NV involving a dominant proximal RCA and proximal LAD. EF previously 10-15%. EF improved since that time. Ischemia findings discussed with patient. LHC vs medical management discussed. He would like to go home today and continue to be treated for pnuemonia. Denies chest pain since admission. We will attempt medical management for disease. If he continues to have symptoms he would like to consider LHC in the future. Plavix held for surgery. Now restarted. Add imdur and increase atorvastatin to 80 mg daily. [facility] will schedule out-pt f/u in 1-2 weeks. (2) CAD (coronary artery disease) Current Visit: Yes Status: Acute H/o NV s/p PCI in 2011. LHC 12/2011-Left ventricular ejection fraction was 15-20% prior to PCI. There is severe, global, left ventricular hypokinesis. 80 to 90% discrete stenosis in the pLAD -PTCA and YANE placed.100% stenosis pOM, filled slowly. 40% discrete stenosis pLCx. RCA was dominant. 90 to 99% stenosis pRCA Thrombus was present. 40% stenosis mid to distal right coronary artery. DESx 2 placed in pRCA. TTE 09/2016- EF 50% with segmental sytolic dysfunction. Mild diastolic dysfuction. Mild AR. Continue asa, plavix, statin, and bb. Qualifiers: Coronary Disease-Associated Artery/Lesion type: [place] artery [place] vs. transplanted heart: [place] heart Associated angina: angina presence unspecified Qualified Code(s): I25.10 - Atherosclerotic heart disease of [place] coronary artery without angina pectoris Discussion w patient/family: The assessment and plan as outlined above was discussed with the patient and/or family members who expressed understanding and agreement. All questions were answered. Thank you for involving us in the care of your patient. Please call with any questions. History of Present Illness Consult date: 10/26/16 Requesting physician: Neelima Olson Consult reason: Abnormal stress test Chief complaint: SOB, cough, chest pain History of present illness: Mr. Gibson is a 56 year old male with a history of CAD, NV, and previous PCI in 2011, HTN, HLD, and diabetes type II who presented with chest pain, SOB, cough. He underwent hand surgery on . The next day he developed SOB, cough, congestion, and midsternal sharp chest pains. His symptoms continued over the weekend and he went to see his PCP on Tuesday who recommended evaluation in the ER. He is found to have atypical pneumonia and pulmonology was consulted. He underwent stress test to further evaluate his chest pain. Cardiology consulted for abnormal stress test. He denies chest pain for the past two days. Past Med Surg Social Fam HX - Past Medical History Attestation: Yes The following information was validated with the patient. Medical history: cardiomyopathy, coronary artery disease, diabetes, GERD, hyperlipidemia, hypertension, myocardial infarction Psychiatric history: anxiety, depression, panic disorder - Past Surgical History Surgical History: angioplasty/stent, cholecystectomy, sinus surgery, other - Social History Smoking Status: Current every day smoker Smokeless Tobacco Status: No Alcohol use: occasionally Drug use: none - Family History Mother Living Status: Hx Family Cardiac Disorders: Yes Father Living Status: Hx Family Cardiac Disorders: Yes (stroke, NV) Hx Family Endocrine Disorder: Yes (DM) Medications and Allergies Aspirin 81 mg PO DAILY 03/31/15 [History] Atorvastatin [Lipitor] 40 mg PO HS 03/31/15 [History] Carvedilol [Coreg] 12.5 tab PO BID 03/31/15 [History] Clopidogrel [Plavix] 75 mg PO DAILY 03/31/15 [History] DiphenhydraMINE [Benadryl] 25 mg PO HS PRN 03/31/15 [History] FLUoxetine HCl [PROzac] 20 mg PO DAILY #0 03/31/15 [History] Fluticasone Propionate Nasal [Flonase] 2 spray NS DAILY 03/31/15 [History] Gabapentin [Neurontin] 800 mg PO HS 03/31/15 [History] GlipiZIDE XL (24 HR) [Glucotrol XL] 10 mg PO BID 03/31/15 [History] Insulin Glargine,Hum.rec.anlog [Lantus Solostar] 30 units SQ HS 03/31/15 [ History] LORazepam [Ativan] 2 mg PO BID PRN 03/31/15 [History] Losartan [Cozaar] 50 mg PO DAILY 03/31/15 [History] Omeprazole [PriLOSEC] 20 mg PO DAILY 03/31/15 [History] OxyCODONE/APAP 7.5/325 [Percocet 7.5/325] 1 tab PO TID PRN 03/31/15 [History] Metformin [Glucophage] 1,000 mg PO BIDWM 10/01/15 [History] Nitroglycerin [Nitrostat] 0.4 mg SL AD PRN 10/01/15 [History] Allergies No Known Allergies Allergy (Verified 10/21/16 08:31) All Systems Review: A 10-system review of systems was performed and is negative for pertinent findings except as documented above in the HPI. Physical Examination Vital Signs, Last 4 Hours Temp Pulse Resp BP Pulse Ox 10/26/16 14:45 98.2 F 79 16 157/83 99 10/26/16 12:31 98.3 F 79 14 145/87 95 General: Conversant, No Apparent Distress HEENT: Atraumatic, Normocephaly, Mucus Membranes Moist Neck: No JVD, Normal carotid pulses Cardiac: Reg Rate and Rhythm, Normal S1 and S2, No Murmur Lungs: Normal Breath Sounds, No Wheeze, Rales, Rhonchi, Other (respirations easy , diminished throughout.) Neuro: Alert and responsive, No focal deficits noted Abdomen: Soft, Non-Tender Skin: No rashes noted on visualized skin Musculoskeletal: No Chest Wall Tenderness Extremities: No Clubbing, No Cyanosis, No Edema, Normal Pulses, Other (right hand with stiches wraped in kerlex. ) Results 10/26/16 00:40 10/26/16 00:40 Lab Results 10/25/16 10/25/16 10/26/16 19:15 20:39 00:40 WBC Hgb Hct Plt Count Sodium Potassium Chloride Carbon Dioxide BUN Creatinine Glucose Calcium Troponin I 0.01 0.01 B-Natriuretic Peptide 43 10/26/16 10/26/16 00:40 00:40 WBC 10.5 Hgb 13.3 Hct 38.7 Plt Count 180 Sodium 135 L Potassium 4.1 Chloride 105 Carbon Dioxide 22 BUN 14 Creatinine 1.10 Glucose 226 H Calcium 8.7 Troponin I B-Natriuretic Peptide - Imaging and Cardiology Stress Test: report reviewed Echo: report reviewed Cardiac cath: report reviewed - EKG Interpretation EKG results cardiology: personally reviewed (Sr with no acute ST changes.) Consult Discharge Plan - Plan Referrals: Bebeto Cutler MD [Primary Care Provider] - <[email or web address] - Last Filed: 10/26/16 17:40> Assessment and Plan Discussion w patient/family: The assessment and plan as outlined above was discussed with the patient and/or family members who expressed understanding and agreement. All questions were answered. Thank you for involving us in the care of your patient. Please call with any questions. History of Present Illness History of present illness: Mr. Gibson is a 56 year old male All Systems Review: A 10-system review of systems was performed and is negative for pertinent findings except as documented above in the HPI. Physical Examination Vital Signs, Last 4 Hours Temp Pulse Resp BP Pulse Ox 10/26/16 14:45 98.2 F 79 16 157/83 99 Results 10/26/16 00:40 10/26/16 00:40 Lab Results 10/25/16 10/25/16 10/26/16 19:15 20:39 00:40 WBC Hgb Hct Plt Count Sodium Potassium Chloride Carbon Dioxide BUN Creatinine Glucose Calcium Troponin I 0.01 0.01 B-Natriuretic Peptide 43 10/26/16 10/26/16 00:40 00:40 WBC 10.5 Hgb 13.3 Hct 38.7 Plt Count 180 Sodium 135 L Potassium 4.1 Chloride 105 Carbon Dioxide 22 BUN 14 Creatinine 1.10 Glucose 226 H Calcium 8.7 Troponin I B-Natriuretic Peptide - Attending Attestation I examined this patient and my medical decision-making was reviewed with the ACID RECOVERY OPERATOR/PA/Advanced Practice Nurse/Resident Physician. I agree with the documented findings, disposition and treatment plan. Mr. Gibson describes to me one episode of chest pain. He has been chest pain free since. Symptoms are atypical for ischemia. He had low risk stress test findings. We are restarting his plavix and adding imdur. Atorvastatin is being increased. He wants to go home. I recommend follow up with his primary gem carver for re-evaluation of symptoms on medical therapy.
[2016-10-26] MEDS ORDERED: Isosorbide MONOnitrate (24 HR) 30 MG TAB.ER.24H PO SCH (17:00)
--- NOTE | 2016-10-26 17:33 | Discharge Summary ---
Date of Encounter: 10/26/16 Time of Encounter: 17:30 - Discharge Diagnosis (1) Chest pain Priority: Primary Status: Resolved Comments: Patient was admitted shortness of breath dry cough and chest pain started 4 days ago after having a surgery for his right wrist. He denies any fever. He had a CTA which was negative for acute filling defect however it was noted to have bilateral patchy opacities. His troponins were negative he did have an abnormal stress test today that showed mild ischemia at the apex, and was seen by cardiology for this. He does not need a cardiac catheter at this time. He is pain-free, he denies nausea, vomiting, or shortness of breath. He was cleared by cardiology to go home. He does have a history of coronary artery disease and cardiology did discuss with him that if he continues to have chest pain a left heart catheter will be something to be discussed. Patient had a TTE in August showed an ejection fraction of 50%, segmental LV dysfunction. He had a prior EF of 10-15% before an VT and stenting. Qualifiers: Chest pain type: unspecified Qualified Code(s): R07.9 - Chest pain, unspecified (2) Atypical pneumonia Priority: Secondary Status: Acute Comments: Patient had a CTA in the emergency department was negative for filling disorder however showed multiple infiltrates, and acute multifocal opacities consistent with what is most likely viral pneumonia patient was treated with Levaquin 750 mg IV daily and will be sent home with 500 mg Levaquin for 7 days. He does not require oxygen to maintain his sats. His lungs are diminished throughout and he currently reports dry hacking cough. He has been afebrile and does not have leukocytosis at this time it is return to baseline 10.5. Patient will need to have repeat CAT scan in 6 weeks to ensure resolution of the infiltrates. He will need to follow-up with his family doctor for an order. This was discussed in his discharge instructions. (3) Abnormal stress test Priority: Secondary Status: Acute Comments: Today's stress test showed prior previous medium to large infarct involving basal apical inferior wall basal mid inferior lateral wall and apex EF is 42% which appears to be improved from prior is stenting. Also is a mild kelsey- infarct ischemia involving the basal to midinferior lateral wall. His Plavix was restarted, Imdur was added, and increased his atorvastatin to 80 mg daily. He will need to follow-up with cardiology in 1-2 weeks. (4) Type 2 diabetes mellitus Priority: Secondary Status: Chronic Comments: Chronic. A1c is 8%. He has been hyperglycemic since arrival. Patient states this is normal for him. He will need follow-up with primary care for tighter glycemic control. Qualifiers: Diabetes mellitus complication status: without complication Diabetes mellitus intermediate card tender insulin use: without fpc use Qualified Code(s): E11.9 - Type 2 diabetes mellitus without complications (5) Hypertension Priority: Secondary Status: Chronic Comments: Chronic. Continue home medications. Qualifiers: Hypertension type: essential hypertension Qualified Code(s): I10 - Essential (primary) hypertension (6) CAD (coronary artery disease) Priority: Secondary Status: Chronic Comments: Chronic. Plan as above. Patient will follow up with cardiology in 1-2 weeks. Qualifiers: Coronary Disease-Associated Artery/Lesion type: [place] artery [place] vs. transplanted heart: [place] heart Associated angina: angina presence unspecified Qualified Code(s): I25.10 - Atherosclerotic heart disease of [place] coronary artery without angina pectoris (7) Smoker Priority: Secondary Status: Chronic Comments: Patient states that he is not ready to stop smoking at this time. (8) DVT prophylaxis Priority: Secondary Status: Acute Comments: Patient has been ambulating in room. Antiembolic stockings. Lovenox subcutaneous daily. - Discharge Medications Prescriptions: Isosorbide MONOnitrate (24 HR) [Imdur] 30 mg PO DAILY #30 tab.er.24h Levofloxacin [Levaquin] 500 mg PO DAILY #10 tablet Home Medications: Aspirin 81 mg PO DAILY 03/31/15 [History] Atorvastatin [Lipitor] 40 mg PO HS 03/31/15 [History] Carvedilol [Coreg] 12.5 tab PO BID 03/31/15 [History] Clopidogrel [Plavix] 75 mg PO DAILY 03/31/15 [History] DiphenhydraMINE [Benadryl] 25 mg PO HS PRN 03/31/15 [History] FLUoxetine HCl [Prozac] 20 mg PO DAILY #0 03/31/15 [History] Fluticasone Propionate Nasal [Flonase] 2 spray NS DAILY 03/31/15 [History] Gabapentin [Neurontin] 800 mg PO HS 03/31/15 [History] GlipiZIDE XL (24 HR) [Glucotrol XL] 10 mg PO BID 03/31/15 [History] Insulin Glargine,Hum.rec.anlog [Lantus Solostar] 30 units SQ HS 03/31/15 [ History] LORazepam [Ativan] 2 mg PO BID PRN 03/31/15 [History] Losartan [Cozaar] 50 mg PO DAILY 03/31/15 [History] Omeprazole [PriLOSEC] 20 mg PO DAILY 03/31/15 [History] OxyCODONE/APAP 7.5/325 [Percocet 7.5/325] 1 tab PO TID PRN 03/31/15 [History] Metformin [Glucophage] 1,000 mg PO BIDWM 10/01/15 [History] Nitroglycerin [Nitrostat] 0.4 mg SL AD PRN 10/01/15 [History] Atorvastatin [Lipitor] 80 mg PO HS #30 tablet 10/26/16 [Rx] Ipratropium/Albuterol Neb [Duoneb] 3 ml IH QIDR inhsol 10/26/16 [Rx] Isosorbide MONOnitrate (24 HR) [Imdur] 30 mg PO DAILY #30 tab.er.24h 10/26/16 [ Rx] Levofloxacin [Levaquin] 500 mg PO DAILY #10 tablet 10/26/16 [Rx] Allergies/Adverse Reactions: Allergies No Known Allergies Allergy (Verified 10/21/16 08:31) Procedures/tests Complete & Pending: Procedures Performed prior 72 hours Category Date Time Status NM gabriela perf SPECT multi [NM] Routine Exams 10/26/16 00:52 Taken ECG 12 lead ECG [ECG] AM 0600 Y 10/26/16 06:00 Completed SP pharm nuclear stress Routine Y 10/26/16 07:05 Completed Date of admission: 10/25/16 15:54 Primary care physician: Bebeto Cutler MD Consults: 10/25/16 22:40 Consult to Pulmonology [CONS] Routine Consulting Provider: [facility] [place] Reason for Consult: questionable Atypical pneumonia, with ground glass opacities in BUL Call Completed: No 10/26/16 15:27 Consult to Cardiology [CONS] Routine Comment: Consulting Provider: [facility] [place] Reason for Consult: abnormal stress Time Notified: 15:28 Call Completed: Yes Discharging clinician: Neelima Olson - Patient Status Disposition: Home, Self-Care Condition: Good Functional capacity at discharge: independent ambulation Overall status at discharge: patient is progressing back to baseline - Discharge Instructions Follow Up With: Bebeto Cutler MD [Primary Care Provider] - Additional Instructions: Take your medications as directed. Make sure that you finish the Levaquin until save any for later. Follow up with [facility] in 1-2 weeks. He will need to have a repeat CAT scan in 6 weeks to ensure that your pneumonia has resolved. Please see your family doctor for follow-up and order for a chest CAT scan. Continue your normal home medications. Return if you have any problems or concerns, or if your pain returns, you get a fever, or begin having new pain, confusion, or any other concerning symptom . - Diet and Activity Activity: resume usual activities as tolerated Diet: advance to your usual diet Interval History: Patient was admitted yesterday with one episode of chest pain described as sharp and radiated through to his back is midsternal and left chest. He has had shortness of breath for 4 days likely related to his atypical pneumonia. Is a history of coronary artery disease and an abnormal stress test today. Patient was seen by cardiology and cleared to go home no stent required at this time. HIS troponins were negative 3. EKG without signs of ischemia and normal sinus rhythm. He had an echocardiogram last month which showed an ejection fraction 50% mild LVH and mild LV diastolic dysfunction. Patient had right wrist surgery and has been short of breath since that time 4 days ago. Patient had a stress test to be. He had no significant ECG changes with medication is gated LVEF is 42%.Today's stress test showed LV dilated with a volume of 244ml. Findings consistent with a medium-large VT involving segments with ischemia. Mild kelsey-infarct ischemia in the basal -mid inferolateral wall. Pt was seen by Cardiology and cleared for home. Plavix was restarted, Imdur 30 mg by mouth daily with added, and atorvastatin was increased to 80 mg daily. He was given a prescription for the Imdur and the atorvastatin by me. He will follow-up with additional cardiology in 1-2 weeks. Patient was also seen by pulmonology as well during his admission. Chest x-ray showed acute multifocal opacities consistent with likely bilateral pneumonia he was treated with IV Levaquin here 150 mg daily and will be sent home on 500 mg by mouth daily 10 days. He should have a repeat CAT scan in 6 weeks to ensure that there is resolution of the opacities. Patient states he is not ready to stop smoking. Patient is stable for discharge home. Hospital course: Mr. Gibson is a 56 year old male - Time Spent with Patient Total time spent providing and/or coordinating discharge services: - Constitutional Vitals: Temp Pulse Resp BP Pulse Ox 98.2 F 79 16 157/83 99 10/26/16 14:45 10/26/16 14:45 10/26/16 14:45 10/26/16 14:45 10/26/16 14:45 General appearance: Present: cooperative, A&O X 3, pleasant, no acute distress, answers questions appropriately - Head Head exam: Present: normal inspection - ENT ENT exam: Present: mucous membranes moist, normal exam, normal external ear exam - Neck Neck exam general surgery: Present: normal inspection. Absent: lymphadenopathy , tenderness - Respiratory Respiratory exam: Present: decreased breath sounds, CTAB. Absent: rales, respiratory distress, rhonchi, stridor, wheezes, tachypnea - Cardiovascular Cardiovascular exam: Present: RRR, +S1, +S2. Absent: diastolic murmur, systolic murmur - Expanded Cardiovascular Exam Peripheral pulses: 2+: Dorsalis Pedis (L) PM, Dorsalis Pedis (R) PM - GI/Abdominal GI/Abdominal exam: Present: distended, normal bowel sounds, soft. Absent: hepatomegaly, tenderness - Extremities Exam Extremities exam: Present: normal capillary refill, normal inspection, warm, radial pulses palpable and symetrical. Absent: joint swelling, mottling, pedal edema, tenderness - Neurological Exam Neurological exam: Present: alert, oriented X3. Absent: no focal deficits, facial droop, speech deficit
[2016-10-26] MEDS ORDERED: Aminoglycoside Consult 1 EACH MC ONE (18:35)
--- NOTE | 2016-10-27 07:25 | Electrocardiograph Report ---
[address] [place] [address] Test Date: 2016-10-25 Pat Name: Jayden Gibson Department: 104 Room: 3B48 Gender: M Shoe Associate: : 1960 Requested By: Lionel Redd Order Number: [id number] Reading MD: Rafael Gunter MD Measurements Intervals [place] Rate: 81 P: 60 PA: 154 QRS: 38 QRSD: 115 T: 27 QT: 362 QTc: 400 Interpretive Statements SINUS RHYTHM INFERIOR MYOCARDIAL INFARCTION, PROBABLY OLD Electronically Signed On 10-27-2016 7:23:47 EDT by Rafael Gunter MD
--- NOTE | 2016-10-27 09:09 | Electrocardiograph Report ---
[address] [place] [address] Test Date: 2016-10-26 Pat Name: Jayden Gibson Department: 113 Room: 3B Gender: M Belt Repairer: RINA : 1960 Requested By: Veronica Pink Order Number: [id number] Reading MD: Rafael Gunter MD Measurements Intervals [place] Rate: 72 P: 50 OK: 173 QRS: 30 QRSD: 108 T: 24 QT: 402 QTc: 425 Interpretive Statements SINUS RHYTHM INFERIOR MYOCARDIAL INFARCTION, PROBABLY OLD Poor R wave progression Electronically Signed On 10-27-2016 9:08:21 EDT by Rafael Gunter MD
== END 2016-10-26 18:36 | disposition home or self-care (01) ==
LOC: EMEROO 11:18 → 3BNU 11:18
PROVIDERS: ADMIT Nurse Practitioner Family; ATTEND Registered Nurse